=== PATIENT | female | born 1960 | race Caucasian/White ===

== ENCOUNTER 2017-06-22 20:16 | Observation (INO) | payer SELFPAY ==
--- NOTE | 2017-06-22 22:03 | ER Document Report ---
ED General - General Chief Complaint: Chest Pain Stated Complaint: CHEST PAIN Time Seen by Provider: 06/22/17 22:00 Notes: Patient is a 57-year-old female presents with complaint of pain over her right lower ribs. Patient says the pain radiates around her back. She says she does have history of gallbladder disease not sure if this is related. Patient also complains of a lot of cough congestion difficulty breathing is been ongoing for 3 weeks. She has not seen a doctor about this. She says the pain on her right side is worse whenever she coughs or moves. Is also sometimes worse with eating. No fevers. No vomiting. No diarrhea. No other complaints at this time. TRAVEL OUTSIDE OF THE [place] IN LAST 30 DAYS: No - Related Data Allergies/Adverse Reactions: acetaminophen [From Midrin] Allergy (Verified 06/22/17 20:31) cephalexin [From Keflex] Allergy (Verified 06/22/17 20:31) clindamycin [From Cleocin] Allergy (Verified 06/22/17 20:31) codeine Allergy (Verified 06/22/17 20:31) dichloralphenazone [From Midrin] Allergy (Verified 06/22/17 20:31) isometheptene [From Midrin] Allergy (Verified 06/22/17 20:31) Past Medical History - Social History Smoking Status: Current Every Day Smoker Frequency of alcohol use: None Drug Abuse: None Family History: Reviewed & Not Pertinent Psychiatric Medical History: Reports: Hx Bipolar Disorder Past Surgical History: Reports: Hx Appendectomy, Hx Gynecologic Surgery - OVARIAN CYST, Hx Hysterectomy, Hx Orthopedic Surgery - L HIP, Hx Tonsillectomy, Hx Tubal Ligation Review of Systems - Review of Systems Notes: My Normal Review Basic REVIEW OF SYSTEMS: CONSTITUTIONAL : Denies fever, chills, or sweats. Denies recent illness. EENT: Denies eye, ear, throat, or mouth pain or symptoms. Denies nasal or sinus congestion. CARDIOVASCULAR: Right Lower ribs. RESPIRATORY: Denies cough, cold, or chest congestion. Denies shortness of breath, difficulty breathing, or wheezing. GASTROINTESTINAL: Right upper abdominal pain. Denies nausea, vomiting, or diarrhea. GENITOURINARY: Denies difficulty urinating, painful urination, burning, frequency, or blood in urine. FEMALE GENITOURINARY: Denies vaginal bleeding, abnormal or irregular periods. LMP: MUSCULOSKELETAL: Denies neck or back pain or joint pain or swelling. SKIN: Denies rash or skin lesions. NEUROLOGICAL: Denies altered mental status or loss of consciousness. Denies headache. Denies weakness or paralysis or loss of use of either side. Denies problems with gait or speech. Denies sensory or motor loss. ALL OTHER SYSTEMS REVIEWED AND NEGATIVE. Physical Exam - Vital signs Vitals: Temp Pulse Resp BP Pulse Ox 98.5 F 109 H 20 158/99 H 100 06/22/17 20:31 06/22/17 20:31 06/22/17 20:31 06/22/17 20:31 06/22/17 20:31 - Notes Notes: General Appearance: Well nourished, alert, cooperative, moderate acute distress , no obvious discomfort. Vitals: reviewed, See vital signs table. Head: no swelling or tenderness to the head Eyes: PERRL, EOMI, Conjuctiva clear Mouth: No decreasd moisture Throat: No tonsillar inflammation, No airway obstruction Chest wall: Pain to palpation over right lower ribs. No pain to palpation of the abdomen itself below the ribs. All pain is reproduced with palpation over the ribs only. Neck: Supple, no neck tenderness, No thyromegaly Lungs: diffuse wheezing, No rales, diffuse rhonci, No accessory muscle use, fair air exchange bilaterally. Heart: Normal rate, Regular rythm, No murmur, no rub Abdomen: Normal BS, soft, No rigidity, No reproducible abdominal tenderness to palpation, No guarding, no rebound, no abdominal masses, no organomegaly Extremities: strength 5/5 in all extremities, good pulses in all extremities, no swelling or tenderness in the extremities, no edema. Skin: warm, dry, appropriate color, no rash Neuro: speech clear, oriented x 3, normal affect, responds appropriately to questions. Course - Re-evaluation Re-evalutation: 06/23/17 01:00 Patient's lung sounds are improved however she still has some diminished airflow and some tachypnea and when I turn off her oxygen her O2 saturations go down to 87% at rest. With 2 L she is at 96-97%. At this time I feel it is not safer to go home based on her hypoxemia. I explained this to the patient and she understands. Her pain over the right upper quadrant is only over to palpation of the ribs. I cannot reproduce the pain when I push on the abdomen itself. Her CMP and lipase are negative. I think this is more related to rib pain from all the coughing as opposed to the gallbladder. I have spoken with the hospitalist, Dr. Rodríguez, who agrees to admit the patient. - Vital Signs Vital signs: Temp Pulse Resp BP Pulse Ox 98.5 F 109 H 12 152/106 H 99 06/22/17 20:31 06/22/17 20:31 06/23/17 00:00 06/22/17 23:01 06/23/17 00:00 - Laboratory Result Diagrams: 06/22/17 22:05 06/22/17 22:05 Laboratory results interpreted by me: 06/22/17 06/22/17 22:05 22:05 WBC 11.1 H RDW 14.1 H Chloride 109 H Carbon Dioxide 20 L Direct Bilirubin 0.5 H - EKG Interpretation by Me Additional EKG results interpreted by me: 06/22/17 22:01 EKG is reviewed and interpreted by me. EKG shows normal sinus rhythm with rate of [address] segment elevation. Patient does have some ST segment depression in leads V3 and V4 but this is old and unchanged in comparison to her previous EKG from May 29, 2016. RI interval, QRS duration, QTc intervals are within normal range. Discharge - Discharge Clinical Impression: Acute bronchitis Qualifiers: Bronchitis organism: unspecified organism Qualified Code(s): J20.9 - Acute bronchitis, unspecified Condition: Stable Disposition: ADMITTED OBSERVATION Admitting Provider: Hospitalist Unit Admitted: Telemetry
[2017-06-22 22:16] LABS: ABSOLUTE BASOPHILS # (AUTO) 0.1 10^3/uL (0.0-0.2); ABSOLUTE EOSINOPHILS # (AUTO) 0.3 10^3/uL (0.0-0.6); ABSOLUTE MONOCYTES (AUTO) 0.9 10^3/uL (0.1-1.4); ABSOLUTE NEUT (AUTO) 5.8 10^3/uL (1.7-8.2); BASOPHILS % (AUTO) 1.2 % (0-2); EOSINOPHILS % (AUTO) 2.4 % (0-6); HEMATOCRIT 42.1 % (36.0-47.0); HEMOGLOBIN 14.3 g/dL (12.0-15.5); HGB HCT DIFFERENCE 0.8; LYMPHOCYTES % (AUTO) 35.9 % (13-45); MEAN CORPUSCULAR HEMOGLOBIN 30.9 pg (27.0-33.4); MEAN CORPUSCULAR VOLUME 91 fl (80-97); MONOCYTES % (AUTO) 8.2 % (3-13); RED BLOOD COUNT 4.65 10^6/uL (3.72-5.28); RED CELL DISTRIBUTION WIDTH 14.1 % (11.5-14.0); SEGMENTED NEUTROPHILS % (AUTO) 52.3 % (42-78); WHITE BLOOD COUNT 11.1 10^3/uL (4.0-10.5)
[2017-06-22] MEDS ORDERED: METHYLPREDNISOLONE INJ 125 MG/2 ML SDV IV ONE (22:19)
[2017-06-22] MEDS ORDERED: IPRATROPIUM/ALBUTEROL 0.5-2.5 MG/3 ML AMPUL NEB ONE (22:20)
[2017-06-22 22:32] LABS: ALANINE AMINOTRANSFERASE 24 U/L (9-52); ALBUMIN 4.7 g/dL (3.5-5.0); ALKALINE PHOSPHATASE 60 U/L (38-126); ANION GAP 13 (5-19); ASPARTATE AMINO TRANSFERASE 19 U/L (14-36); BILIRUBIN,DIRECT 0.5 mg/dL (0.0-0.4); BILIRUBIN,TOTAL 1.2 mg/dL (0.2-1.3); BLOOD UREA NITROGEN 16 mg/dL (7-20); CALCIUM 10.1 mg/dL (8.4-10.2); CARBON DIOXIDE 20 mmol/L (22-30); CHLORIDE 109 mmol/L (98-107); CREATININE RESULT 0.96 mg/dL (0.52-1.25); GLUCOSE 90 mg/dL (75-110); SODIUM 142.1 mmol/L (137-145); TOTAL PROTEIN 7.3 g/dL (6.3-8.2)
[2017-06-22] MEDS ORDERED: NORMAL SALINE 1000 ML 1,000 ML IV ONE (22:38)
[2017-06-22] MEDS: MAGNESIUM SULFATE/D5W 1 GM/100 ML RTUPB IV SCH (22:41)
--- NOTE | 2017-06-22 23:04 | RADIOLOGY REPORT (SQ) ---
EXAM DESCRIPTION: CHEST SINGLE VIEW COMPLETED DATE/TIME: 06/22/2017 10:52 pm REASON FOR STUDY: cough. chest pain COMPARISON: None. EXAM PARAMETERS: NUMBER OF VIEWS: One view. TECHNIQUE: Single frontal radiographic view of the chest acquired. RADIATION DOSE: NA LIMITATIONS: None. FINDINGS: LUNGS AND PLEURA: No opacities, masses or pneumothorax. No pleural effusion. Calcified gr anuloma is identified in the left mid lung field MEDIASTINUM AND HILAR STRUCTURES: Calcified left hilar lymph nodes are identified. HEART AND VASCULAR STRUCTURES: Heart normal in size. Normal vasculature. BONES: No acute findings. HARDWARE: None in the chest. OTHER: No other significant finding. IMPRESSION: No acute changes. Old granulomatous disease. Other findings as noted above TECHNICAL DOCUMENTATION: JOB ID: [id number] [employer] All Rights Reserved
[2017-06-22] MEDS ORDERED: ALBUTEROL SULFATE 0.083% NEB 2.5 MG/3 ML AMPUL NEB ONE (23:45)
[2017-06-23] MEDS: MAGNESIUM SULFATE/D5W 1 GM/100 ML RTUPB IV SCH
[2017-06-23] MEDS ORDERED: CHLORPHENIRAMINE MALEATE 4 MG TABLET PO ONE (00:59)
[2017-06-23] MEDS ORDERED: ACETAMINOPHEN 325 MG TABLET PO PRN (00:59)
[2017-06-23] MEDS ORDERED: IPRATROPIUM/ALBUTEROL 0.5-2.5 MG/3 ML AMPUL NEB PRN (01:00)
[2017-06-23] MEDS ORDERED: GUAIFENESIN SYRP 200 MG/10 ML UDC PO PRN (01:00)
[2017-06-23] MEDS ORDERED: KETOROLAC TROMETHAMINE INJ/PF 30 MG/1 ML SDV IV PRN (01:03)
[2017-06-23] MEDS ORDERED: HYDRALAZINE HCL INJ/PF 20 MG/1 ML SDV IV PRN (01:03)
[2017-06-23] MEDS ORDERED: FLUTICASONE NASAL SPRAY 50 MCG/SPRY 120 SPRAY/16 GM NASL ONE (01:30)
[2017-06-23] MEDS ORDERED: PREDNISONE 20 MG TABLET PO ONE (01:30)
[2017-06-23] MEDS ORDERED: LACTULOSE SYRUP 20 GM/30 ML UDCUP PO ONE (01:59)
[2017-06-23] MEDS ORDERED: LORAZEPAM INJ 2 MG/1 ML VIAL IV ONE (02:06)
[2017-06-23] MEDS: IPRATROPIUM/ALBUTEROL 0.5-2.5 MG/3 ML AMPUL NEB SCH ×2 (02:23→07:49)
[2017-06-23] MEDS ORDERED: FLUTICASONE NASAL SPRAY 50 MCG/SPRY 120 SPRAY/16 GM ONE (04:39)
[2017-06-23] MEDS ORDERED: CHLORPHENIRAMINE MALEATE 4 MG TABLET ONE (04:39)
[2017-06-23] MEDS ORDERED: LACTULOSE SYRUP 20 GM/30 ML UDCUP ONE (04:39)
--- NOTE | 2017-06-23 05:45 | PDOC H&P ---
History of Present Illness Admission Date/PCP: 06/23/17 01:09 Patient complains of: Shortness of breath History of Present Illness: JOSÉ MIGUEL WEATHERS is a 57 year old female with past medical history of bipolar depression, chronic bronchitis, constipation, tobacco, cannabis dependence and noncompliance. She presents after 3 weeks of worsening abdominal pain and shortness of breath prompting her to seek evaluation emergency room. She denies productive cough, fevers or palpitations but has had both chest and abdominal pain worsened with deep breathing and p.o. intake. Patient complains of severe constipation believing she has not had a bowel movement in the last 4 weeks. She complains of uncontrolled nausea and anxiety prompting her to self medicate with daily cannabis. Patient is otherwise not taken any medications for several months secondary to financial barriers. Past Medical History Cardiac Medical History: Reports: None Pulmonary Medical History: Reports: Bronchitis EENT Medical History: Reports: None Neurological Medical History: Reports: None Endocrine Medical History: Reports: None Renal/ Medical History: Reports: None Malignancy Medical History: Reports: None GI Medical History: Reports: None Musculoskeltal Medical History: Reports: None Psychiatric Medical History: Reports: Bipolar Disorder, Substance Abuse, Tobacco Dependency Denies: Alcohol Dependency Hematology: Reports: None Infectious Medical History: Reports: None Past Surgical History Past Surgical History: Reports: Appendectomy, Hysterectomy, Orthopedic Surgery - L HIP, Tonsillectomy, Tubal Ligation Social History Information Source: Patient Smoking Status: Current Every Day Smoker Cigarettes Packs Per Day: 1 Frequency of Alcohol Use: None Drugs: Marijuana - Advance Directive Resuscitation Status: Full Code Family History Family History: CAD, COPD, Other - Sister with hepatic cirrhosis unclear cause Parental Family History Reviewed: Yes Children Family History Reviewed: Yes Sibling(s) Family History Reviewed.: Yes Medication/Allergy Home Medications: Hydrocodone/Acetaminophen [Westley 5-325 mg Tablet] 1 tab PO Q6 #14 tablet Allergies/Adverse Reactions: acetaminophen [From Midrin] Allergy (Verified 06/22/17 20:31) cephalexin [From Keflex] Allergy (Verified 06/22/17 20:31) clindamycin [From Cleocin] Allergy (Verified 06/22/17 20:31) codeine Allergy (Verified 06/22/17 20:31) dichloralphenazone [From Midrin] Allergy (Verified 06/22/17 20:31) isometheptene [From Midrin] Allergy (Verified 06/22/17 20:31) Review of Systems Constitutional: PRESENT: as per HPI, anorexia, fatigue, weakness. ABSENT: fever (s), headache(s) Eyes: ABSENT: visual disturbances Ears: ABSENT: hearing changes Cardiovascular: PRESENT: as per HPI, chest pain. ABSENT: dyspnea on exertion, edema, orthropnea, palpitations Respiratory: PRESENT: cough, dyspnea. ABSENT: sputum Gastrointestinal: PRESENT: as per HPI, abdominal pain, bloating, constipation, nausea. ABSENT: coffee ground emesis, diarrhea, vomiting Genitourinary: ABSENT: dysuria, hematuria Musculoskeletal: ABSENT: joint swelling Integumentary: ABSENT: rash, wounds Neurological: ABSENT: abnormal gait, abnormal speech, confusion, dizziness, focal weakness, syncope Psychiatric: PRESENT: anxiety, depression Endocrine: ABSENT: cold intolerance, heat intolerance, polydipsia, polyuria Hematologic/Lymphatic: ABSENT: easy bleeding, easy bruising Physical Exam Vital Signs: Temp Pulse Resp BP Pulse Ox 98.5 F 113 H 26 H 152/77 H 93 06/22/17 20:31 06/23/17 02:26 06/23/17 03:01 06/23/17 03:01 06/23/17 03:01 Results Impressions: Chest X-Ray 06/22/17 22:20 IMPRESSION: No acute changes. Old granulomatous disease. Other findings as noted above Assessment & Plan - Diagnosis (1) Acute bronchitis Qualifiers: Bronchitis organism: unspecified organism Qualified Code(s): J20.9 - Acute bronchitis, unspecified Is this a current diagnosis for this admission?: Yes Plan: Empiric antibiotics, flutter valve, avoid steroids secondary to risk of psychosis. (2) COPD exacerbation Is this a current diagnosis for this admission?: Yes Plan: Telemetry observation, supplemental oxygen, albuterol and Atrovent, flutter valve, avoid steroids secondary to psychosis risk. (3) Depression with anxiety Is this a current diagnosis for this admission?: Yes Plan: Depression Patient denies homicidal or suicidal ideation. I Will evaluate education reconciliation, TSH and obtain urine drug screen, currently refusing antidepressant or antipsychotic medication, consider SSRI and or mental health consultation. (4) Substance abuse Is this a current diagnosis for this admission?: Yes Plan: Education consider mental health referral (5) Tobacco dependence Is this a current diagnosis for this admission?: Yes Plan: Tobacco Dependence patient received tobacco cessation counseling and offered nicotine replacement options (6) Constipation Is this a current diagnosis for this admission?: Yes Plan: Clear liquid diet until resumption of bowel movement, consider abdominal imaging , lactulose p.o. and Fleet enema - Time Time Spent: 30 to 50 Minutes
[2017-06-23] MEDS ORDERED: HEPARIN SOD (PORCINE) 5,000 UNIT/ML 1 ML SYRINGE SUBCUT SCH (06:00)
--- NOTE | 2017-06-23 07:56 | EKG REPORT ---
SEVERITY:- ABNORMAL ECG - SINUS RHYTHM NONSPECIFIC ST-T CHANGES ANTEROLATERAL LEADS, UNCHANGED FROM 05/29/2016 EKG : Confirmed by: Takn Cervantes MD 23-Jun-2017 07:56:04
[2017-06-23] MEDS ORDERED: PREDNISONE 20 MG TABLET PO SCH (10:00)
[2017-06-23] MEDS ORDERED: FLUTICASONE NASAL SPRAY 50 MCG/SPRY 120 SPRAY/16 GM NASL SCH (10:00)
[2017-06-23] MEDS ORDERED: NA PHOS,M-B/NA PHOS,DI-BA (ADULT) 133 ML ENEMA PR SCH (10:00)
[2017-06-23] MEDS ORDERED: GUAIFENESIN 600 MG TABLET.SA PO SCH (10:00)
[2017-06-23] MEDS ORDERED: LEVOFLOXACIN 750 MG/D5W RTU 750 MG/150 ML RTUPB IV SCH (10:00)
--- NOTE | 2017-06-23 10:10 | Physician Advisory Note ---
Physician Advisor ProgressNote .: Pursuant to the plan for Rhonda Downey, I have reviewed the medical record for this patient. Physician Advisor Statement: Nice job documenting Ac bronchitis & COPD exac. Please consider documenting, if you agree: 1. "Acute Hypoxemic Respiratory Failure, evidenced by O2 sats in 80s on RA in ED, with accessory muscle use for initial ED nurse assessment & moderate acute distress for ED dr, along w/tachycardia & tachypnea, ..." 2. Medical necessity/status: If pt remains clinically concerning today, not safe for d/c today, please document ongoing clinical issues/concerns, & may consider change to Inpatient status. Thanks! CK
[2017-06-23 12:43] VITALS: BP 158/99
--- NOTE | 2017-06-23 15:48 | DISCHARGE SUMMARY E ---
Discharge Summary NAME: JOSÉ MIGUEL WEATHERS : 1960 AGE: 57Y ADMITTED: 06/23/2017 DISCHARGED: 06/23/2017 CODE STATUS: FULL CODE. PRIMARY CARE PROVIDER: The patient was referred to the [facility]. DISCHARGE DIAGNOSES: 1. Acute bronchitis. 2. COPD exacerbation resolved. 3. THC dependency. 4. Tobacco dependency. 5. Chronic constipation. 6. Bipolar disorder. DISCHARGE MEDICATIONS: Lactulose 20 g p.o. daily p.r.n. DIET: As tolerated. ACTIVITY: As tolerated. DIAGNOSTICS: Lab values are as follow: Hematology obtained on 06/22/2017: WBCs are 11.1, hemoglobin is 14.3, hematocrit is 42.1, platelet count is 284,000. Chemistry obtained on 06/22/2017: Sodium is 142, potassium 4.0, chloride is 109, carbon dioxide 20, BUN 16, creatinine 0.96, glucose 90, calcium is 2.1, bilirubin is 1.2, AST 19, ALT is 24, alk phos 60, troponin is 0.012, total protein 7.3, albumin 4.7, lipase is 240. Wrist x-ray obtained on 05/29/2017 reveals negative study of the right wrist. No radiographic evidence of acute injury. Chest x-ray obtained on 06/22/2017 reveals no acute change. Old disease. EKG obtained on 06/23/2017 reveals sinus rhythm. PHYSICAL EXAMINATION: GENERAL: On examination, the patient is a well-developed, reasonably nourished, 57-year-old female who is awake, alert. She is oriented to person, place, time, and situation. She is verbal, conversational, extremely agitated, and does not appear to be in distress. VITAL SIGNS: Temperature 98.2, pulse 82, respirations 22, blood pressure 133/65, oxygen saturation is 93% walking on room air. SKIN: Warm and dry. No rash. She is not diaphoretic. HEENT: Pupils equal, round, reactive to light and accommodation. Conjunctivae are pink. No JVP. CARDIOVASCULAR: Heart is regular. There is no murmur or rub. CHEST: Clear, symmetrical, unlabored. ABDOMEN: Soft, nontender, nondistended. BACK: No CVA tenderness or sacral edema. EXTREMITIES: No clubbing, cyanosis, or edema. PSYCHIATRIC: Bizarre on presentation. HISTORY OF PRESENT ILLNESS: The patient is a 57-year-old female with a past medical history of bipolar depression, chronic bronchitis, constipation, tobacco and cannabis dependency as well as noncompliance. The patient presented to the emergency department with a chief complaint of 3 weeks of abdominal pain as well as shortness of breath prompting her to seek evaluation in the emergency department. The patient denies productive cough, fever, palpitations, nausea, vomiting, diarrhea. The patient noted that her symptoms were worse with a deep breath. The patient complained of severe constipation, stating that she had not had a bowel movement in about 4 weeks and the patient complained of uncontrollable nausea and anxiety prompting her to self-medicate daily with cannabis. The patient otherwise has not taken any medications for several months, citing that she does not like traditional medications. The patient was noted to have some wheezing on examination and was referred to the hospitalist for observation and management. HOSPITAL COURSE: The patient was observed in continuous telemetry unit. The patient refused to wear oxygen, however, her oxygen saturations did not fall below 92%. The patient was given lactulose in an effort to have a bowel movement, however, she refused this as well as refused an enema. The patient refused all medications while in the hospital including repeat morning labs. The patient actually attempted to leave AMA during the night, however, after discussion with the nurse the patient did agree to stay. However, the morning before I rounded, the patient walked down to the emergency department and asking nursing staff down there to remove her IV because she wanted to elope. The patient was brought back to the floor by hospital staff. The patient is absolutely adamant that she be discharged, citing that she does not like "[employer] and would like to be discharged." Went in and had a discussion with the patient, however, the patient was not reasonable. The patient did not have evidence of earl such as pressured speech or flight of ideas. The patient was simply agitated and angry and stated that this was not the kind of medicine she wanted and wished that her daughter had not even brought her to the emergency department. Given that the patient was able to be verbally abusive and speak in full sentences without shortness of breath and was not hypoxic, she is safe for discharge. Have asked the patient about fecal impaction and she states "I've been dealing with this for year and know who to handle it." Time spent on this discharge including assessment, plan, physical examination, patient education, review of records, and multiple phone calls navigating this patient's course is 45 minutes. DICTATING PHYSICIAN: SANDY URENA NP [id number] PHY#: [id number] ID: [id number] JOB#: [id number] ACCT: [id number] cc:LEONELA YANG M.D., MICHAEL NP > MTDD
== END 2017-06-23 12:57 | disposition home or self-care (01) ==
LOC: ER 20:16 → EH 06-23 01:09 → 4S 06-23 04:00
PROVIDERS: ADMIT Internal Medicine; ATTEND Internal Medicine
PROC: 3E0F7GC Introduction of Other Therapeutic Substance into Respiratory Tract, Via Natural or Artificial Opening (ICD-10-PCS; principal; 2017-06-22)
DX: J44.0 Chronic obstructive pulmonary disease with (acute) lower respiratory infection (principal); J20.9 Acute bronchitis, unspecified; J44.1 Chronic obstructive pulmonary disease with (acute) exacerbation; F17.210 Nicotine dependence, cigarettes, uncomplicated; F12.20 Cannabis dependence, uncomplicated; K59.09 Other constipation; F31.9 Bipolar disorder, unspecified; R11.0 Nausea; R63.0 Anorexia; F41.8 Other specified anxiety disorders; R09.02 Hypoxemia; Z91.14 Patient's other noncompliance with medication regimen; Z90.49 Acquired absence of other specified parts of digestive tract; Z90.710 Acquired absence of both cervix and uterus; Z98.51 Tubal ligation status; Z82.49 Family history of ischemic heart disease and other diseases of the circulatory system; Z82.5 Family history of asthma and other chronic lower respiratory diseases
CPT/HCPCS: 93005; 94640 ×4; 99285; 96375; 96365; 96366; 36415; 83690; 85025; 80053; 84484; 71010; 93010; G0378 ×2; J1644; J2930; J2060; J3475 ×2; J7512; J3490; J7030; J7620 ×2

== ENCOUNTER 2017-07-30 20:45 | Emergency (ER) | payer SELFPAY ==
--- NOTE | 2017-07-30 21:20 | ER Document Report ---
HPI - HPI Patient complains to provider of: fell on buttocks Pain Level: 5 Context: 57-year-old female when out of check the mail today slipped on ice and fell on her buttocks and both of her elbows. She is tender over the sacrum she is not allergic to Tylenol. She did take a Goody powder at home for pain she called the ambulance because nobody would bring her to the hospital. No saddle anesthesia or radiculopathy. No abdominal pain. She does not think her elbows are broken she is able to move them. Associated Symptoms: None Exacerbated by: Movement, Walking Relieved by: Denies Similar symptoms previously: No Recently seen / treated by doctor: No - ROS ROS below otherwise negative: Yes Systems Reviewed and Negative: Yes All other systems reviewed and negative - CARDIOVASCULAR Cardiovascular: DENIES: Chest pain - GASTROINTESTINAL Gastrointestinal: DENIES: Abdominal Pain - URINARY Urinary: DENIES: Dysuria - REPRODUCTIVE LMP: na Past Medical History - General Information source: Patient - Social History Smoking Status: Current Every Day Smoker Frequency of alcohol use: None Drug Abuse: None Lives with: Spouse/Significant other Family History: CAD, COPD, Other - Sister with hepatic cirrhosis unclear cause Patient has suicidal ideation: No Patient has homicidal ideation: No Pulmonary Medical History: Reports: Hx Bronchitis Renal/ Medical History: Denies: Hx Peritoneal Dialysis Psychiatric Medical History: Reports: Hx Bipolar Disorder, Hx Depression Past Surgical History: Reports: Hx Appendectomy, Hx Gynecologic Surgery - OVARIAN CYST, Hx Hysterectomy, Hx Orthopedic Surgery - L HIP, Hx Tonsillectomy, Hx Tubal Ligation Vertical Provider Document - CONSTITUTIONAL Agree With Documented VS: Yes Exam Limitations: No Limitations - INFECTION CONTROL TRAVEL OUTSIDE OF THE [place] IN LAST 30 DAYS: No - HEENT HEENT: Normocephalic - NECK Neck: Supple - RESPIRATORY Respiratory: Breath Sounds Normal, No Respiratory Distress O2 Sat by Pulse Oximetry: 96 - CARDIOVASCULAR Cardiovascular: Regular Rate, Regular Rhythm - GI/ABDOMEN Gastrointestinal: Abdomen Soft, Abdomen Non-Tender - BACK Back: Normal Inspection Notes: non tender spine except for the sacrum. - MUSCULOSKELETAL/EXTREMETIES Musculoskeletal/Extremeties: MAEW, FROM, Tender - see abpve Notes: red olecranon, non tender, no swelling, FROM, mild tender left mid scapula. - NEURO Level of Consciousness: Awake, Alert, Appropriate - DERM Integumentary: Warm, Dry, No Rash Course - Re-evaluation Re-evalutation: 07/30/17 21:33 Patient now states that she did not take the Goody powders she took 2 Tylenol at home. I asked her she wants Motrin for pain. - Vital Signs Vital signs: Temp Pulse Resp BP Pulse Ox 98.0 F 100 16 131/79 H 96 07/30/17 20:54 07/30/17 20:54 07/30/17 20:54 07/30/17 20:54 07/30/17 20:54 Discharge - Discharge Clinical Impression: Contusion of sacrum Qualifiers: Encounter type: initial encounter Qualified Code(s): S30.0XXA - Contusion of lower back and pelvis, initial encounter Contusion of coccyx Qualifiers: Encounter type: initial encounter Qualified Code(s): S30.0XXA - Contusion of lower back and pelvis, initial encounter Contusion of elbow, left Qualifiers: Encounter type: initial encounter Qualified Code(s): S50.02XA - Contusion of left elbow, initial encounter Contusion of right elbow Qualifiers: Encounter type: initial encounter Qualified Code(s): S50.01XA - Contusion of right elbow, initial encounter Condition: Good Disposition: HOME, SELF-CARE Instructions: Ice Packs ([facility]), Warm Packs ([facility]), Acetaminophen, Anti- Inflammatory Medication ([facility]) Additional Instructions: warm or cold compress whichever feels better tylenol and motrin for pain see your doctor for follow up the xray was negative, expect to hurt for several weeks see your doctor for follow up Prescriptions: Ibuprofen [Motrin 600 mg Tablet] 600 mg PO Q8HP PRN #30 tablet PRN Reason:
[2017-07-30] MEDS ORDERED: ACETAMINOPHEN 325 MG TABLET PO ONE (21:27)
[2017-07-30] MEDS ORDERED: IBUPROFEN 600 MG TABLET PO ONE (21:34)
--- NOTE | 2017-07-30 21:52 | RADIOLOGY REPORT (SQ) ---
EXAM DESCRIPTION: SACRUM AND COCCYX COMPLETED DATE/TIME: 07/30/2017 9:45 pm REASON FOR STUDY: fall on buttocks COMPARISON: None. NUMBER OF VIEWS: Three views. TECHNIQUE: AP, lateral, and tilt views of the sacrum and coccyx. LIMITATIONS: None. FINDINGS: MINERALIZATION: Normal. BONES: No acute fracture or dislocation. No worrisome bone lesions. SOFT TISSUES: No soft tissue swelling. No foreign body. OTHER: No other significant finding. IMPRESSION: NEGATIVE STUDY OF THE SACRUM AND COCCYX. TECHNICAL DOCUMENTATION: JOB ID: [id number] [employer] All Rights Reserved
[2017-07-30 22:02] VITALS: BP 128/83
== END 2017-07-30 22:06 | disposition home or self-care (01) ==
LOC: ER 20:45
DX: S30.0XXA Contusion of lower back and pelvis, initial encounter (principal); S50.02XA Contusion of left elbow, initial encounter; S50.01XA Contusion of right elbow, initial encounter; W01.0XXA Fall on same level from slipping, tripping and stumbling without subsequent striking against object, initial encounter; F17.200 Nicotine dependence, unspecified, uncomplicated
CPT/HCPCS: 72220; 99283

== ENCOUNTER 2017-10-17 19:50 | Emergency (ER) | payer SELFPAY ==
[2017-10-17] MEDS ORDERED: FAMOTIDINE 20 MG TABLET PO ONE (21:34)
[2017-10-17] MEDS ORDERED: DEXAMETHASONE SOD PHOS INJ 10 MG/1 ML VIAL IM ONE (21:34)
--- NOTE | 2017-10-17 21:36 | ER Document Report ---
ED Skin Rash/Insect Bite/Abscs - General Chief Complaint: Headache Stated Complaint: HEAD AND NECK PAIN Time Seen by Provider: 10/17/17 20:45 Mode of Arrival: Ambulatory Information source: Patient Notes: 57-year-old female presented to ED for itching and burning to the neck and back of the head. States she has severe itching and hives in her neck and head and states that his itching is so bad it feels like something is crawling inside of her back her neck and her head. She states she needs to get it out. She is scratching her head and her neck at this time. She does have urticaria to the back of her head and neck. TRAVEL OUTSIDE OF THE [place] IN LAST 30 DAYS: No - HPI Patient complains to provider of: Skin rash/lesion Onset: Other - Several days Onset/Duration: Persistent, Worse Quality of pain: Burning Severity: Moderate Pain Level: 4 Skin Character: Urticarial Quality of rash: Itchy, Burning Identify cause: No Exacerbated by: Denies Relieved by: Denies Similar symptoms previously: Yes Recently seen / treated by doctor: No - Related Data Allergies/Adverse Reactions: cephalexin [From Keflex] Allergy (Verified 10/17/17 19:59) clindamycin [From Cleocin] Allergy (Verified 10/17/17 19:59) codeine Allergy (Verified 10/17/17 19:59) dichloralphenazone [From Midrin] Allergy (Verified 10/17/17 19:59) isometheptene [From Midrin] Allergy (Verified 10/17/17 19:59) Past Medical History - General Information source: Patient - Social History Smoking Status: Current Every Day Smoker Cigarette use (# per day): Yes - Half pack per day Chew tobacco use (# tins/day): No Smoking Education Provided: Yes - 4 minutes Frequency of alcohol use: Occasional Drug Abuse: Marijuana Occupation: None Lives with: Family Family History: Arthritis, CAD, COPD, DM, Hyperlipidemia, Hypertension, Malignancy - Skin cancer, Other - Sister with hepatic cirrhosis unclear cause. denies: CVA, Thyroid Disfunction Patient has suicidal ideation: No Patient has homicidal ideation: No - Past Medical History Cardiac Medical History: Reports: Hx Hypertension Pulmonary Medical History: Reports: Hx Bronchitis EENT Medical History: Reports: None Neurological Medical History: Reports: None Endocrine Medical History: Reports: None Renal/ Medical History: Reports: None Malignancy Medical History: Reports: Hx Cervical Cancer GI Medical History: Reports: None Musculoskeltal Medical History: Reports Hx Musculoskeletal Trauma Skin Medical History: Reports None Psychiatric Medical History: Reports: Hx Bipolar Disorder, Hx Depression Traumatic Medical History: Reports: Hx Fractures - Hip Infectious Medical History: Reports: None Past Surgical History: Reports: Hx Adenoidectomy, Hx Appendectomy, Hx Gynecologic Surgery - OVARIAN CYST, Hx Hysterectomy, Hx Orthopedic Surgery - L HIP, Hx Tonsillectomy, Hx Tubal Ligation - Immunizations Immunizations up to date: Yes Review of Systems - Review of Systems Constitutional: No symptoms reported EENT: No symptoms reported Cardiovascular: No symptoms reported Respiratory: No symptoms reported Gastrointestinal: No symptoms reported Genitourinary: No symptoms reported Female Genitourinary: No symptoms reported Musculoskeletal: No symptoms reported Skin: Rash - Urticaria and burning to the back of the head neck and upper back Hematologic/Lymphatic: No symptoms reported Neurological/Psychological: No symptoms reported -: Yes All other systems reviewed and negative Physical Exam - Vital signs Vitals: Temp Pulse BP Pulse Ox 98.4 F 81 164/93 H 96 10/17/17 20:01 10/17/17 20:01 10/17/17 20:01 10/17/17 20:01 Interpretation: Normal - General General appearance: Appears well, Alert - HEENT Head: Normocephalic, Atraumatic Eyes: Normal Pupils: PERRL - Respiratory Respiratory status: No respiratory distress Chest status: Nontender Breath sounds: Normal Chest palpation: Normal - Cardiovascular Rhythm: Regular Heart sounds: Normal auscultation Murmur: No - Abdominal Inspection: Normal Distension: No distension Bowel sounds: Normal Tenderness: Nontender Organomegaly: No organomegaly - Back Back: Normal, Nontender - Extremities General upper extremity: Normal inspection, Nontender, Normal color, Normal ROM , Normal temperature General lower extremity: Normal inspection, Nontender, Normal color, Normal ROM , Normal temperature, Normal weight bearing. No: Amanda's sign - Neurological Neuro grossly intact: Yes Cognition: Normal Orientation: AAOx4 Jonathon Coma Scale Eye Opening: Spontaneous Jonathon Coma Scale Verbal: Oriented Jonathon Coma Scale Motor: Obeys Commands Jonathon Coma Scale Total: 15 Speech: Normal Motor strength normal: LUE, RUE, LLE, RLE Sensory: Normal - Psychological Associated symptoms: Normal affect, Normal mood - Skin Skin Temperature: Warm Skin Moisture: Dry Skin Color: Normal Location of irregularity: Scalp, Neck, Back Character of irregularity: Urticarial Irregularity with: Tenderness - States it is burning she is sitting there scratching her head and neck constantly Course - Re-evaluation Re-evalutation: 10/17/17 21:37 Patient instructed that as long as she scratches her head the pain is going to get worse. She was instructed to use ice pack to the itching instead of scratching. She was also treated with Decadron and Pepcid in the emergency room and will be discharged home with prescription for prednisone and Pepcid. Patient was instructed to use Benadryl at home for the itching and to continue using ice pack and please stop scratching as this only makes the pain and itching worse. Patient instructed to follow-up with a factory engineer or an manager auto for the hives to the back of her neck and head. Patient was given a list of local primary doctor says she states she does not have a doctor at this time. - Vital Signs Vital signs: Temp Pulse Resp BP Pulse Ox 97.9 F 80 20 144/90 H 96 10/17/17 21:57 10/17/17 21:57 10/17/17 21:57 10/17/17 21:57 10/17/17 21:57 Discharge - Discharge Clinical Impression: Rash and nonspecific skin eruption, Urticaria Condition: Stable Disposition: HOME, SELF-CARE Instructions: Family Physicians / Practices Additional Instructions: Acute Urticaria Your hives are due to an allergic reaction. Hives are sometimes accompanied by swelling of the hands, feet and face, hoarseness, and difficulty swallowing or breathing. Hives may be due to exposure to medication, animal dander, foods, infection, or insect bites. Medication allergy is common, even if this same medication caused no problems in the past. Often, the specific allergic agent can't be identified unless repeated episodes occur. Your treatment includes the following: (1) Stop any suspicious medications. This will be discussed with you. (2) Oral antihistamines for the next four to five days (Benadryl, Atarax). (3) Avoid aspirin until the hives completely disappear. (4) Avoid hot baths or showers until the hives are completely gone. Sometimes adrenaline shots or cortisone are required for severe cases of hives. "Allergy shots" are sometimes required. Call the doctor or return if faintness, difficulty swallowing, tightness in the chest, or wheezing occurs. ACUTE ALLERGIC REACTION: Your symptoms are due to an allergic reaction. Allergy can cause hives, swelling of the hands, feet, and face, hoarseness, and difficulty swallowing or breathing. It may be due to exposure to medication, animal dander, foods, infection, or insect bites. Medication is a common cause, even when prior use of this same medication caused no problems. Acute treatment may include adrenalin and antihistamines. Usually, the specific allergic agent can't be identified unless repeated episodes occur. Home treatment includes the following: (1) Stop any suspicious medications. This will be discussed with you. (2) Oral antihistamines for the next four to five days. Example, diphenhydramine (Benadryl) every four hours. (3) You may also use cimetidine (Tagamet), ranitidine (Zantac), or famotidine ( Pepcid) every four hours if diphenhydramine is not controlling itching and hives. (4) Avoid aspirin until the hives completely disappear. (5) Avoid hot baths or showers until the hives are completely gone. Call the doctor if faintness, difficulty swallowing, tightness in the chest , or wheezing occurs. STEROID MEDICATION INJECTION: You have been given an injection of medicine of the cortisone/steroid class. This medication is used to control inflammation or allergy. It is often continued as a pill for a short period of time, until the acute process subsides. There are usually no side effects from short-term use of cortisone-like medications. Some persons feel an increased sense of well-being and are not sleepy at bedtime. Long-term use of cortisone medications is best avoided, unless required for a severe condition. If your condition does not remit, or relapses after the course of corticosteroid medication, you should consult your physician. STEROID MEDICATION: You have been given a medicine of the cortisone/steroid class. This medication is used to control inflammation or allergy. It is usually only given for a short period of time, until the acute process subsides. There are usually no side effects from short-term use of cortisone-like medications. Some persons feel an increased sense of well-being and are not sleepy at bedtime. Long-term use of cortisone medications is best avoided, unless required for a severe condition. If your condition does not remit, or relapses after the course of corticosteroid medication, you should consult your physician. ACID-SUPPRESSING MEDICATION: You have a prescription for medicine which reduces the stomach's secretion of acid. Examples include Zantac, Tagament, and Pepcid. These drugs are often used to allow healing of ulcers or esophagitis. They may be needed to prevent recurrence of ulcers in some patients, or to prevent damage from acid reflux in the esophagus. Take all medication as prescribed, even after the pain is gone. Regular antacids may be added as needed if you have symptoms while taking this medicine. These medications sometimes are prescribed for allergic reactions because they have anti-histaminic effects and relieve the rash and itching of the reaction. There are usually no side effects from this medication. But, in rare cases and particularly in the elderly, serious problems can occur. Contact your doctor if there is fever, rash, hallucinations, confusion, or unusual bruising. Contact your doctor at once if you develop lightheadedness, black or bloody stool, or bloody vomitus. ANTIHISTAMINES: An antihistamine has been given and/or prescribed to control your symptoms. Antihistamines are used for many reasons, including itching, watering eyes, runny nose, allergic swelling, hives, and insect stings. Antihistamines may cause drowsiness, especially with the first dose. Do not operate machinery or drive while under the effects of the medication. Other common side effects include dry mouth and eyes. In older persons, antihistamines can occasionally cause urinary retention, constipation, and trouble focusing the eyes. Do not combine the medication with alcohol, or with any other medication without talking to your doctor. USE OF DIPHENHYDRAMINE: The use of diphenhydramine (Benadryl) has been recommended to control allergic symptoms. The 25 mg strength is available over- the-counter, as well as the elixir. This antihistamine is used for many symptoms. It's useful for itching, watering eyes and nose, allergic swelling, hives, and insect stings. The medication can be repeated four times daily. Age Elixir (12.5 mg/tsp) 25 mg pill 2-3 yr 1/2 tsp 4-8 yr 1 tsp 9-14 yr 2 tsp one tab adult 1-2 tabs Antihistamines may cause drowsiness, especially with the first dose. Do not operate machinery or drive while under the effects of the medication. Do not combine the medication with alcohol, or with any other medication without talking to your doctor. FOLLOW-UP CARE: If you have been referred to a physician for follow-up care, call the physician s office for an appointment as you were instructed or within the next two days. If you experience worsening or a significant change in your symptoms, notify the physician immediately or return to the Emergency Department at any time for re-evaluation. Prescriptions: Prednisone [Deltasone 10 mg Tablet] 10 mg PO ASDIR PRN #21 tablet PRN Reason: Forms: Elevated Blood Pressure, Smoking Cessation Education
[2017-10-17 21:59] VITALS: BP 144/90
== END 2017-10-17 21:59 | disposition home or self-care (01) ==
LOC: ER 19:50
DX: L50.9 Urticaria, unspecified (principal); I10 Essential (primary) hypertension; F17.210 Nicotine dependence, cigarettes, uncomplicated; Z71.6 Tobacco abuse counseling; Z88.1 Allergy status to other antibiotic agents; Z88.5 Allergy status to narcotic agent; Z88.6 Allergy status to analgesic agent; Z85.41 Personal history of malignant neoplasm of cervix uteri
CPT/HCPCS: 99406; 99283; 96372; 82962; J1100